=== PATIENT | female | born 1970 | race Caucasian/White ===

== ENCOUNTER 2019-01-14 22:39 | Emergency (ER) | payer OTHER ==
[~2019-01-14] VITALS: Ht 162.6 cm; Wt 91.6 kg
[2019-01-14] MEDS ORDERED: NEOMYCIN/POLYMYX/BACITR OINT 0.9 GM PKT ONE (23:07)
[2019-01-14] MEDS ORDERED: ACETAMINOPHEN 325 MG TAB ONE (23:07)
[2019-01-14] MEDS ORDERED: BACITRACIN ZINC 0.9GM TP ONE (23:15)
[2019-01-14] MEDS ORDERED: ACETAMINOPHEN 325 MG TAB PO ONE (23:15)
[2019-01-14] MEDS ORDERED: CLINDAMYCIN PHOS 600 MG/ 4 ML VIAL IM ONE (23:45)
--- NOTE | 2019-01-14 23:48 | NUR ---
PT STATED ANIMAL CONTROL AND POLICE WERE ON SCENE AND BOTH DOGS TAKEN INTO CUSTODY . PT STATED SHE HAS CASE NUMBER AT HOME. ONE DOG WAS THE PATIENTS THE OTHER BELONGED TO NEIGHBOUR.
[2019-01-14] MEDS ORDERED: CLINDAMYCIN PHOS 600 MG/ 4 ML VIAL ONE (23:52)
[2019-01-15 00:44] VITALS: BP 146/97
--- NOTE | 2019-01-15 01:39 | Diagnostic Imaging Report ---
HAND 2 VIEW RT - HOPD - HISTORY: Pain COMPARISON: None available. FINDINGS: Evaluation slightly limited due to overlying bandage. Bones: No acute displaced fracture. Osseous alignment is within normal limits. Joints: Degenerative changes in the hand and fingers, worst at the first carpometacarpal joint Soft tissues: Mild soft tissue swelling about the hand. IMPRESSION: Soft tissue swelling about the hand. No definite acute osseous abnormalities however evaluation slightly limited due to overlying bandage. Degenerative changes in the hand and fingers, worst at the first carpometacarpal joint. Signed by: Derick Olivia DO on 01/15/2019 1:36 AM
== END 2019-01-15 00:48 | disposition home or self-care (01) ==
LOC: FSED 22:39
DX: M79.642 Pain in left hand (principal); M79.641 Pain in right hand; S61.432A Puncture wound without foreign body of left hand, initial encounter; S61.431A Puncture wound without foreign body of right hand, initial encounter; S61.232A Puncture wound without foreign body of right middle finger without damage to nail, initial encounter; W54.0XXA Bitten by dog, initial encounter; Y92.488 Other paved roadways as the place of occurrence of the external cause
CPT/HCPCS: 99283